=== PATIENT | female | born 1985 | race Caucasian/White ===

== ENCOUNTER 2017-01-19 13:18 | Emergency (ER) | payer OTHER ==
[~2017-01-19] VITALS: Ht 149.9 cm; Wt 46.7 kg
--- NOTE | ~2017-01-19 | EKG ---
[address] [address] [place] [address] ELECTROCARDIOGRAM REPORT Name: JOSE GUADALUPE PIEDRA Room #: [id number] Admission: 01/19/17 Attend Phys: Discharge: Date of : 83 Report #: [id number] THIS REPORT FOR: //name// [facility] ED Test Date: 2017-01-19 Test Time: 13:21:03 Pat Name: JOSE GUADALUPE PIEDRA Department: Room: Gender: F Transportation Assistant: PAVAN : 1985 Requested By: Prema Montes Order Number: [id number] MD: Samuel Mckeon Measurements Intervals [place] Rate: 92 P: 46 IN: 144 QRS: -63 QRSD: 78 T: 45 QT: 346 QTc: 429 Interpretive Statements Sinus rhythm Left anterior fascicular block No previous ECG available for comparison Electronically Signed On 01-19-2017 15:24:18 CDT by Samuel Mckeon [email or web address] <ELECTRONICALLY SIGNED> By: Samuel Mckeon MD 01/19/17 1524 1321 1321 Samuel Mckeon MD /[email or web address]
[~2017-01-19 13:18] MED LIST: ACETAMINOPHEN-1 EAC1 PO; ADDERALL 20 MG20 M1 PO; AMOXICILLIN 50500 MG PO; ATIVAN1 MG PO; BACLOFEN 10MG T10 MG PO; BACTRIM DS TAB1 EACH PO; BENTYL20 MG PO; BUSPAR30 MG; CIPRO500 M1 PO; CIPRO500 MG PO; CLEOCIN HCL150 MG PO; DOXYCYCLINE 10100 MG PO; FIORICET 50-321 EACH PO; FLEXERIL PO; HYDROCODONE-AP1 EAC6 PO; HYOMAX-DT0.375 MG PO; IBUPROFEN 400400 M1 PO; IBUPROFEN 600600 M1 PO; IBUPROFEN 800800 M1 PO; IBUPROFEN 800800 MG PO; KEFLEX500 MG PO; LOMOTIL TABLET1 EACH PO; LOPERAMIDE 2 MG2 M1 PO; LOPRESSOR25 PO; LORTAB 5 MG/5001 TA1 PO; MACROBID 100 M100 M2 PO; MEDROLDOSEPACK PO; MOBIC15 MG; NAPROSYN500 MG PO; NORCO 5-325 TA1 EACH PO; OMEPRAZOLE 20 M20 M1 PO; ONDANSETRON HCL4 M2 PO; PAXIL10 MG; PROPRANOLOL 1010 MG PO; PROZAC 10 MG CA10 MG PO; PROZAC20 MG/5 ML PO; RITALIN20 MG PO; ROBAXIN500 MG PO; SEROQUEL 100 M100 MG PO; TOBREX5 ML OP; TRAMADOL 50 MG50 MG PO; VALIUM5 MG PO; VICODIN; VISTARIL 25 MG25 M1 PO; WELLBUTRIN 100100 MG PO; XANAX 0.25 MG0.25 MG PO; XANAX XR1 MG PO; ZANTAC 150MG T150 MG PO; ZOFRAN ODT4 MG PO; ZOFRAN4 MG PO; ZPAK PO; [UNRECOGNIZED DRUG - REMARK] PO
[2017-01-19 13:53] LABS: ABSOLUTE NEUTROPHILS 5.7 thou/uL (1.4-8.2); BASOPHILS 0.5 % (0.0-2.0); EOSINOPHILS 0.6 % (0.0-3.0); HEMATOCRIT 43.6 % (37.0-47.0); LYMPHOCYTES 30.3 % (24.0-44.0); MCH 29.3 pg (26.0-34.0); MCHC 34.3 g/dL (28.0-37.0); MCV 85.3 fL (80.0-100.0); MONOCYTES 5.9 % (1.0-8.0); PLATELET COUNT 267 thou/uL (150-400); POLYS 62.7 % (36.0-66.0); RBC 5.12 mil/uL (4.20-5.00); RDW 12.6 % (10.5-14.5)
[2017-01-19 13:56] LABS: MANUAL DIFF NO
[2017-01-19 14:05] LABS: CALCIUM 9.7 mg/dL (8.5-10.1); CREATININE 0.7 mg/dL (0.6-1.0); POTASSIUM 3.8 mmol/L (3.5-5.1)
[2017-01-19 14:11] LABS: ALBUMIN 4.2 g/dL (3.4-5.0); TOTAL BILIRUBIN 2.7 mg/dL (<0.1-1.0); TOTAL PROTEIN 7.8 g/dL (6.4-8.2)
[2017-01-19 14:59] LABS: URINE BILIRUBIN 1+ (Negative); URINE BLOOD TRACE (Negative); URINE COLOR YELLOW; URINE GLUCOSE-RANDOM* NEGATIVE (Negative); URINE KETONES 3+ (Negative); URINE NITRITE NEGATIVE (Negative); URINE PROTEIN (DIPSTICK) NEGATIVE (Negative); URINE SPECIFIC GRAVITY >= 1.030 (1.003-1.035); URINE UROBILINOGEN 0.2 E.U./dl (0.2-1.0)
[2017-01-19 15:01] LABS: ICTOTEST (BILI CONFIRMATORY) Negative (Negative)
[2017-01-19 15:07] LABS: AMP/METHAMP Negative (Negative); BARBITURATES Negative (Negative); BENZODIAZEPINES POSITIVE (Negative); COCAINE Negative (Negative); METHADONE Negative (Negative); OPIATES Negative (Negative); PCP Negative (Negative); THC Negative (Negative)
[2017-01-19 15:24] LABS: SQUAMOUS >10 Many /LPF (0-3)
[2017-01-19 15:25] LABS: CASTS None Seen /LPF (None Seen); CRYSTALS None Seen /LPF (None Seen); URINE RBC 0-2 Rare /HPF (0-2)
[2017-01-19 16:31] VITALS: BP 130/70
== END 2017-01-19 16:35 | disposition home or self-care (01) ==
LOC: ER 13:18
PROVIDERS: Physician Assistant
DX: R00.2 Palpitations (principal); F41.9 Anxiety disorder, unspecified; K21.9 Gastro-esophageal reflux disease without esophagitis; G43.909 Migraine, unspecified, not intractable, without status migrainosus; Z98.890 Other specified postprocedural states; F10.99 Alcohol use, unspecified with unspecified alcohol-induced disorder; Z87.891 Personal history of nicotine dependence; Z88.0 Allergy status to penicillin; Z88.6 Allergy status to analgesic agent